=== PATIENT | male | born 1950 | race Caucasian/White ===

== ENCOUNTER 2017-08-03 14:20 | Emergency (ER) | payer MEDICARE ==
[~2017-08-03] VITALS: Ht 190.5 cm; Wt 109.4 kg
--- NOTE | 2017-08-03 15:04 | NUR ---
H&p DICTATED AND DOCUMENTED BY DR ABREU.
--- NOTE | 2017-08-03 16:05 | NUR ---
Patient discharged to home in stable conditon. Written and verbal after care instructions given to patient and private caregiver. Patient and caregiver verbalized understanding of instructions.
== END 2017-08-03 16:06 | disposition home or self-care (01) ==
LOC: ER 14:23
DX: G56.20 Lesion of ulnar nerve, unspecified upper limb (principal); I10 Essential (primary) hypertension; E78.5 Hyperlipidemia, unspecified; Z87.891 Personal history of nicotine dependence
CPT/HCPCS: A4663